=== PATIENT | male | born 1980 | race Caucasian/White ===

== ENCOUNTER 2018-01-27 17:44 | Emergency (ER) | payer SELFPAY ==
[~2018-01-27] VITALS: Ht 172.7 cm; Wt 91.0 kg
[~2018-01-27 17:44] MED LIST: CEFTR2P2 IV; LORTA5 PO
[2018-01-27 17:46] VITALS: BP 146/89; PULSE 88; RESP 18; TEMP 98; O2SAT 97
--- NOTE | 2018-01-27 18:13 | PD ---
HPI Chief Complaint: Laceration/Skin Injury Time Seen by Provider: 18:10 Travel History International Travel<30 days: Yes (isela) Contact w/Intl Traveler<30days: [place] Traveled to: [place], [place], [facility] [place], [place] Traveled to known affect area: No History of Present Illness HPI 37-year-old male presents emergency department for evaluation of a laceration to his left middle finger that occurred just prior to arrival. Patient states that he was installing interior door the house when he caught his finger on the door and resulted in his laceration. Patient states that he did bleed profusely and he was able to control the bleeding with pressure and gauze. He denies any numbness tingling. Denies any weakness of the finger. Says his last tetanus is less than 4 years ago. 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 Patient is right-handed. [facility] Past Medical History Medical History: Denies Significant Hx Heart Rhythm Problems: No Cancer: No Cardiovascular Problems: Yes (RECURRENT PERICARDITIS) Congestive Heart Failure: No Diabetes: No Diminished Hearing: No Endocrine: No Genitourinary: No Hepatitis: No Hiatal Hernia: No Hypertension: No Immune Disorder: No Musculoskeletal: No Neurologic: No Psychiatric: No Reproductive: No Respiratory: No Thyroid Disease: No Tetanus Vaccination: < 5 Years Influenza Vaccination: Yes ?: Not Past Surgical History Abdominal Surgery: No AICD: No Body Medical Devices: HARDWARE RIGHT FEMUR/ LEFT FOREARM Cardiac Surgery: No Ear Surgery: No Endocrine Surgery: No Eye Surgery: No Genitourinary Surgery: No Gynecologic Surgery: No Joint Replacement: No Oral Surgery: No Pacemaker: No Thoracic Surgery: No Other Surgery: Yes (rhinoplasty) Social History Alcohol Use: Yes (occ) Tobacco Use: No Substance Use: No Allergies-Medications (Allergen,Severity, Reaction): Coded Allergies: No Known Allergies (Unverified , 07/11/14) Reported Meds & Prescriptions Reported Meds & Active Scripts Active Keflex (Cephalexin) 500 Mg Cap 500 Mg PO Q8H 7 Days Review of Systems Except as stated in HPI: all other systems reviewed are Neg Physical Exam Narrative GENERAL: Well-nourished, well-developed patient. SKIN: Focused skin assessment warm/dry. Left middle finger lateral aspect-a V-shaped laceration is present near the DIP , measuring approximately 1cm. Full range of motion of finger, neurovascularly intact. Bleeding controlled HEAD: Normocephalic. EYES: No scleral icterus. No injection or drainage. NECK: Supple, trachea midline. No JVD or lymphadenopathy. CARDIOVASCULAR: Regular rate and rhythm without murmurs, gallops, or rubs. RESPIRATORY: Breath sounds equal bilaterally. No accessory muscle use. GASTROINTESTINAL: Abdomen soft, non-tender, nondistended. MUSCULOSKELETAL: No cyanosis, or edema. BACK: Nontender without obvious deformity. No CVA tenderness. Data Data Last Documented VS Vital Signs Date Time Temp Pulse Resp B/P (MAP) Pulse Ox O2 Delivery O2 Flow Rate FiO2 01/27/18 17:46 98.0 88 18 146/89 (108) 97 Orders Orders Ed Discharge Order (01/27/18 18:53) MDM Medical Decision Making Medical Screen Exam Complete: Yes Emergency Medical Condition: Yes Differential Diagnosis Left middle finger laceration, avulsion, abrasion Narrative Course 37-year-old male presents emergency department for evaluation of a laceration to his left middle finger that occurred just prior to arrival. Patient states that he was installing anterior drawer the house when he caught his finger on the door and resulted in his laceration. Patient states that he did bleed profusely was able to control the bleeding with pressure and gauze. He denies any numbness tingling. Denies any weakness of the finger. Says his last tetanus is less than 4 years ago. 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 Vital signs are stable. Physical exam findings consistent with a V-shaped laceration to the left middle finger DIP. Neurovascular intact. No obvious involvement with tendons, nerves or vascular. He is neurovascularly intact. Laceration repair completed. Wound care advised. Patient states that he will go to the [employer] ship physician to have the sutures removed. Keflex for prophylactic antibiotics. Advised that if his finger develops increased redness, swelling or pain that he should return to the emergency department for further evaluation and treatment. Procedures Procedure Narrative LACERATION LOCATION: Left middle finger LENGTH: 1 cm V-shaped NUMBER OF STITCHES/FLOR: 7 REPAIR: The area of the laceration was prepped with Betadine and sterilely draped. A digital block was performed with 1% lidocaine without epinephrine. The wound was copiously irrigated and explored without evidence of foreign body , tendon injury or neurovascular injury. The wound was closed using 5-0 Prolene. This was a single layer repair. A sterile dressing was applied. The patient was advised to keep the dressing clean and dry. Patient tolerated the procedure well. Diagnosis Primary Impression: Laceration of finger Qualified Codes: S61.213A - Laceration without foreign body of left middle finger without damage to nail, initial encounter Referrals: Primary Care Physician Additional Instructions: You have [address] Suture removal in 7-10 days. Keep area clean and dry for 24 hours. After 24 hours, you may bathe as normal but dry the area thoroughly. You may use [id number] triple antibiotic ointments for your injury daily. Change dressings daily. If bleeding starts, apply pressure and elevate the area. If you developed increased redness, swelling, or pain return to the emergency department as this could be a sign of infection. You have received an antibiotic to reduce the possibility of developing an infection. Scripts Cephalexin (Keflex) 500 Mg Cap 500 MG PO Q8H for Infection for 7 Days, #21 CAP 0 Refills Prov: Colton Gates MD 01/27/18 Disposition: 01 DISCHARGE HOME Condition: Stable Teresa Renner Jan 27, 2018 18:13
[2018-01-27] MEDS ORDERED: CEPH-460 PO (18:53)
== END 2018-01-27 19:15 | disposition home or self-care (01) ==
LOC: PHEFT 17:44
DX: S61.213A Laceration without foreign body of left middle finger without damage to nail, initial encounter (principal); W23.0XXA Caught, crushed, jammed, or pinched between moving objects, initial encounter
CPT/HCPCS: 12001